=== PATIENT | female | born 1955 | race African-American/Black ===

== ENCOUNTER 2018-08-26 14:43 | Inpatient (IN) | payer MEDICAID ==
[~2018-08-26] VITALS: Ht 167.6 cm; Wt 100.4 kg
[2018-08-26] VITALS (9 sets, daily range): BP systolic 120–144; BP diastolic 87–98
[2018-08-26] MEDS ORDERED: HYDR12.529 PO (14:49)
[2018-08-26] MEDS ORDERED: SODIUM CHLORIDE 0.9% 1,000 ML IV ONE (14:55)
[2018-08-26] MEDS ORDERED: SODIUM CHLORIDE 0.9% 1000ML BAG (SEPSIS BOLUS) IV ONE (15:00)
[2018-08-26 15:26] LABS: BASOPHILS % 0.5 % (0.0-2.0); EOSINOPHILS % 0.1 % (0.0-5.0); HEMATOCRIT. 45.1 % (36.0-48.0); HEMOGLOBIN. 14.4 g/dL (12.0-16.0); LYMPHOCYTES % 16.2 % (20.0-50.0); MEAN CORPUSCULAR HEMOGLOBIN 31.7 pg (28.0-32.0); MEAN CORPUSCULAR VOLUME 99.1 fL (81.0-99.0); MEAN PLATELET VOLUME 10.2 fl (7.4-10.4); MONOCYTES % 7.4 % (2.0-8.0); NEUTROPHILS % 75.8 % (40.0-76.0); PLATELET 218 x1000/uL (130-400); RED BLOOD CELL COUNT 4.55 mill/uL (4.2-5.4); RED CELL DISTRIBUTION WIDTH 18.6 % (11.6-14.6)
[2018-08-26 15:29] LABS: CHLORIDE 103 mEq/L (98-107)
[2018-08-26 15:29] LABS: BG BASE EXCESS 1.2 mmol/L (-2.0-2.0); BG CARBOXYHEMOGLOBIN 3.5 % (0.5-1.5); BG DEOXYHEMOGLOBIN 43.8 % (0.0-5.0); BG METHEMOGLOBIN 0.1 % (0.0-1.5); BG OXYGEN SATURATION 54.6 % (92.0-98.5); BG OXYHEMOGLOBIN 52.6 % (94.0-97.0); BG PCO2 141.5 mmHg (35.0-45.0); BG PH 7.035 (7.350-7.450); BG PO2 38.6 mmHg (75.0-100.0); BG SAMPLE SITE RIGHT BRACHIAL; BG TOTAL HEMOGLOBIN 15.1 g/dL (12.0-18.0); BG VENT MODE NASAL CANNULA
[2018-08-26 15:30] LABS: INR 1.1
[2018-08-26 15:33] LABS: ETHANOL BLOOD < 10 mg/dL
[2018-08-26] MEDS ORDERED: SUCCINYLCHOLINE CHLORIDE 200MG/10ML IV ONE (15:45)
[2018-08-26] MEDS ORDERED: ETOMIDATE 2MG/ML 10ML VIAL IV ONE ×2 (15:45→16:15)
[2018-08-26] MEDS ORDERED: MIDAZOLAM HCL 2 MG/2 ML VIAL IV ONE (16:15)
[2018-08-26] MEDS ORDERED: VANCOMYCIN 1 G PREMIX 200 ML IV SCH (16:15)
[2018-08-26] MEDS ORDERED: MIDAZOLAM HCL 50 MG in DEXTROSE 5% WATER 40 ML IV ONE (16:15)
[2018-08-26] MEDS ORDERED: PIPERACILLIN SODIUM/TAZOBACTAM 4.5 G in DEXT 5% WATER 100 ML IV SCH (16:15)
[2018-08-26] MEDS ORDERED: IPRATROPIUM/ALBUTEROL 0.5-3(2.5)MG/3ML NEB HHN PRN (16:45)
[2018-08-26 16:46] LABS: CLARITY URINE TURBID (CLEAR); COLOR URINE DARK YELLOW (YELLOW); KETONES URINE NEGATIVE (NEGATIVE); LEUKOCYTE ESTERASE URINE NEGATIVE (NEGATIVE); NITRITE URINE NEGATIVE (NEGATIVE); OCCULT BLOOD URINE 1+ (NEGATIVE); PROTEIN URINE 3+ (NEGATIVE); SPECIFIC GRAVITY URINE 1.024 (1.005-1.030)
[2018-08-26] MEDS ORDERED: NOREPINEPHRINE 4MG/250ML PMX 250 ML IV PRN (16:49)
[2018-08-26 16:51] LABS: BG BASE EXCESS -4.2 mmol/L (-2.0-2.0); BG CARBOXYHEMOGLOBIN 3.2 % (0.5-1.5); BG DEOXYHEMOGLOBIN 21.6 % (0.0-5.0); BG HCO3 ACT 28.3 mmol/L (22.0-26.0); BG METHEMOGLOBIN 0.3 % (0.0-1.5); BG OXYGEN SATURATION 77.6 % (92.0-98.5); BG OXYHEMOGLOBIN 74.9 % (94.0-97.0); BG PCO2 97.8 mmHg (35.0-45.0); BG PO2 52.6 mmHg (75.0-100.0); BG SAMPLE SITE RIGHT BRACHIAL; BG TIDAL VOLUME(mL) 500 mL; BG TOTAL HEMOGLOBIN 13.8 g/dL (12.0-18.0); BG VENT MODE VENT - A/C; BG VENT RATE 14 set
[2018-08-26] MEDS ORDERED: NOREPINEPHRINE 4 MG in DEXT 5% WATER 246 ML IV ONE (17:00)
[2018-08-26 17:11] LABS: *AMPHETAMINES SCREEN URINE NEGATIVE (NEGATIVE); *BARBITURATES SCREEN URINE NEGATIVE (NEGATIVE); *BENZODIAZEPINES SCREEN URINE NEGATIVE (NEGATIVE); *COCAINE SCREEN URINE NEGATIVE (NEGATIVE); METHADONE URINE SCREEN NEGATIVE (NEGATIVE); OPIATES URINE SCREEN NEGATIVE (NEGATIVE)
[2018-08-26 17:12] LABS: CANNABINOID URINE SCREEN NEGATIVE (NEGATIVE); PHENCYCLIDINE URINE SCREEN NEGATIVE (NEGATIVE)
[2018-08-26] MEDS ORDERED: GUAIFENESIN 200MG/10ML SUGAR FREE UDC PO PRN (17:45)
[2018-08-26] MEDS ORDERED: ACETAMINOPHEN 650MG/20.3ML UDC PO PRN (17:45)
[2018-08-26] MEDS ORDERED: CLONIDINE 0.1MG TABLET PO PRN (17:45)
[2018-08-26] MEDS ORDERED: ONDANSETRON HCL 4MG/2ML INJ IV PRN (17:45)
[2018-08-26] MEDS ORDERED: DOCUSATE SODIUM 100MG CAPSULE PO PRN (17:45)
[2018-08-26] MEDS ORDERED: HYDROCODONE/ACETAMINOPHEN 10/325MG TABLET PO PRN (17:45)
[2018-08-26] MEDS: MIDAZOLAM HCL 50 MG in DEXTROSE 5% WATER 40 ML IV NR (17:54)
[2018-08-26] MEDS: IPRATROPIUM/ALBUTEROL 0.5-3(2.5)MG/3ML NEB HHN SCH (20:25)
[2018-08-26] MEDS ORDERED: FUROSEMIDE 40MG/4ML VIAL IVP NR (21:53)
[2018-08-26] MEDS ORDERED: FENTANYL CITRATE/PF 500 MCG in SODIUM CHLORIDE 0.9% 40 ML IV PRN ×2 (22:00→22:49)
[2018-08-26] MEDS ORDERED: NOREPINEPHRINE 4 MG in DEXT 5% WATER 246 ML IV PRN (22:00)
[2018-08-26] MEDS ORDERED: HYDROMORPHONE HCL/PF 2MG/ML CPJ IV PRN (22:03)
[2018-08-26] MEDS ORDERED: DEXTROSE 50% WATER 50ML SYRINGE IV PRN (22:05)
[2018-08-26] MEDS: SODIUM CHLORIDE 0.9% INJ 3ML FLUSH IVF SCH (22:48)
[2018-08-26] MEDS: PIPERACILLIN/TAZ 3.375G PREMIX 50 ML IV SCH (22:52)
[2018-08-26] MEDS: DEXT 5%/0.45% NACL 1000ML 1,000 ML IV SCH (22:53)
[2018-08-26] MEDS: PROPOFOL 10MG/ML 100ML 100 ML IV PRN (22:56)
[2018-08-26 23:06] LABS: CREATINE KINASE MB FRACTION 2.2 ng/mL (0.5-3.6)
[2018-08-27] VITALS (72 sets, daily range): BP systolic 93–134; BP diastolic 58–95
[2018-08-27] MEDS: IPRATROPIUM/ALBUTEROL 0.5-3(2.5)MG/3ML NEB HHN SCH ×6 (00:37→20:28)
[2018-08-27 05:01] LABS: BASOPHILS % 0.5 % (0.0-2.0); HEMATOCRIT. 43.4 % (36.0-48.0); HEMOGLOBIN. 13.9 g/dL (12.0-16.0); LYMPHOCYTES % 17.9 % (20.0-50.0); MEAN CORPUSCULAR HEMOGLOBIN 31.1 pg (28.0-32.0); MEAN CORPUSCULAR VOLUME 97.3 fL (81.0-99.0); MEAN PLATELET VOLUME 10.4 fl (7.4-10.4); NEUTROPHILS % 69.6 % (40.0-76.0); PLATELET 181 x1000/uL (130-400); RED BLOOD CELL COUNT 4.46 mill/uL (4.2-5.4); RED CELL DISTRIBUTION WIDTH 18.7 % (11.6-14.6)
[2018-08-27 05:17] LABS: CHLORIDE 108 mEq/L (98-107)
[2018-08-27 05:29] LABS: CREATINE KINASE 103 IU/L (26-192)
[2018-08-27 05:31] LABS: CREATINE KINASE MB FRACTION 1.4 ng/mL (0.5-3.6)
[2018-08-27 05:32] LABS: T4 FREE 0.77 ng/dL (0.76-1.46)
[2018-08-27] MEDS: PROPOFOL 10MG/ML 100ML 100 ML IV PRN ×2 (05:57→09:49)
[2018-08-27] MEDS: INSULIN LISPRO 100 UNITS/ML SUBCUT SCH ×3 (06:00→17:42)
[2018-08-27] MEDS: PIPERACILLIN/TAZ 3.375G PREMIX 50 ML IV SCH ×4 (06:00→23:26)
[2018-08-27] MEDS: BLOOD SUGAR DIAGNOSTIC STRIP TEST SCH ×3 (06:01→17:42)
[2018-08-27] MEDS: SODIUM CHLORIDE 0.9% INJ 3ML FLUSH IVF SCH ×3 (06:01→22:00)
[2018-08-27] MEDS ORDERED: BLOOD SUGAR DIAGNOSTIC STRIP TEST SCH (07:50)
[2018-08-27] MEDS ORDERED: INSULIN LISPRO 100 UNITS/ML SUBCUT SCH (08:20)
[2018-08-27 08:27] LABS: BG BASE EXCESS 5.6 mmol/L (-2.0-2.0); BG CARBOXYHEMOGLOBIN 1.2 % (0.5-1.5); BG DEOXYHEMOGLOBIN 7.5 % (0.0-5.0); BG FRACTION INSPIRED OXYGEN 100; BG HCO3 ACT 27.2 mmol/L (22.0-26.0); BG OXYGEN SATURATION 92.4 % (92.0-98.5); BG OXYHEMOGLOBIN 91.3 % (94.0-97.0); BG PCO2 30.8 mmHg (35.0-45.0); BG PH 7.564 (7.350-7.450); BG PO2 54.4 mmHg (75.0-100.0); BG SAMPLE SITE RIGHT RADIAL; BG TIDAL VOLUME(mL) 550 mL; BG TOTAL HEMOGLOBIN 14.2 g/dL (12.0-18.0); BG VENT MODE VENT - A/C; BG VENT RATE 20 set
[2018-08-27] MEDS ORDERED: ENOXAPARIN 30MG/0.3ML SYR SUBCUT SCH (09:00)
[2018-08-27] MEDS: PANTOPRAZOLE SODIUM 40 MG/VIAL IV SCH (09:47)
[2018-08-27] MEDS: LORAZEPAM 2MG/ML CPJ IV PRN (11:00)
[2018-08-27 11:31] LABS: T4 FREE 0.79 ng/dL (0.76-1.46)
[2018-08-27] MEDS: MIDAZOLAM HCL 50 MG in DEXTROSE 5% WATER 40 ML IV NR (12:27)
[2018-08-27] MEDS ORDERED: ENOXAPARIN 80MG/0.8ML SYR SUBCUT SCH (12:45)
[2018-08-27] MEDS: FENTANYL CITRATE/PF 500 MCG in SODIUM CHLORIDE 0.9% 40 ML IV PRN ×2 (13:05→21:12)
[2018-08-27 15:37] LABS: CREATINE KINASE MB FRACTION 1.1 ng/mL (0.5-3.6)
[2018-08-27] MEDS ORDERED: ENOXAPARIN 100MG/ML SYR SUBCUT SCH (23:00)
[2018-08-27] MEDS: DEXT 5%/0.45% NACL 1000ML 1,000 ML IV SCH (23:27)
[2018-08-27 23:41] LABS: CREATINE KINASE 76 IU/L (26-192)
[2018-08-27 23:42] LABS: CREATINE KINASE MB FRACTION < 1.0 ng/mL (0.5-3.6)
[2018-08-28] VITALS (70 sets, daily range): BP systolic 89–158; BP diastolic 54–95
[2018-08-28] MEDS: IPRATROPIUM/ALBUTEROL 0.5-3(2.5)MG/3ML NEB HHN SCH ×7 (00:16→20:14)
[2018-08-28] MEDS: FENTANYL CITRATE/PF 500 MCG in SODIUM CHLORIDE 0.9% 40 ML IV PRN ×4 (03:51→23:00)
[2018-08-28] MEDS: BLOOD SUGAR DIAGNOSTIC STRIP TEST SCH ×4 (06:24→18:00)
[2018-08-28] MEDS: SODIUM CHLORIDE 0.9% INJ 3ML FLUSH IVF SCH ×3 (06:24→22:21)
[2018-08-28 06:25] LABS: BASOPHILS % 0.4 % (0.0-2.0); EOSINOPHILS % 0.5 % (0.0-5.0); HEMATOCRIT. 40.3 % (36.0-48.0); HEMOGLOBIN. 12.8 g/dL (12.0-16.0); LYMPHOCYTES % 20.2 % (20.0-50.0); MEAN CORPUSCULAR HEMOGLOBIN 30.2 pg (28.0-32.0); MEAN CORPUSCULAR VOLUME 95.2 fL (81.0-99.0); MEAN PLATELET VOLUME 10.4 fl (7.4-10.4); MONOCYTES % 7.6 % (2.0-8.0); NEUTROPHILS % 71.3 % (40.0-76.0); PLATELET 172 x1000/uL (130-400); RED BLOOD CELL COUNT 4.24 mill/uL (4.2-5.4); RED CELL DISTRIBUTION WIDTH 18.4 % (11.6-14.6)
[2018-08-28] MEDS: PIPERACILLIN/TAZ 3.375G PREMIX 50 ML IV SCH ×3 (06:28→19:32)
[2018-08-28 06:39] LABS: CHLORIDE 110 mEq/L (98-107)
[2018-08-28] MEDS: INSULIN LISPRO 100 UNITS/ML SUBCUT SCH ×4 (06:42→18:00)
[2018-08-28 06:58] LABS: CREATINE KINASE 59 IU/L (26-192)
[2018-08-28 07:00] LABS: CREATINE KINASE MB FRACTION < 1.0 ng/mL (0.5-3.6)
[2018-08-28 08:30] LABS: BG CARBOXYHEMOGLOBIN 1.2 % (0.5-1.5); BG DEOXYHEMOGLOBIN 10.9 % (0.0-5.0); BG FRACTION INSPIRED OXYGEN 100; BG HCO3 ACT 28.6 mmol/L (22.0-26.0); BG METHEMOGLOBIN 0.5 % (0.0-1.5); BG OXYGEN SATURATION 88.9 % (92.0-98.5); BG OXYHEMOGLOBIN 87.4 % (94.0-97.0); BG PCO2 42.7 mmHg (35.0-45.0); BG PH 7.444 (7.350-7.450); BG PO2 54.1 mmHg (75.0-100.0); BG SAMPLE SITE RIGHT RADIAL; BG TIDAL VOLUME(mL) 550 mL; BG VENT MODE VENT - A/C; BG VENT RATE 14 set
[2018-08-28] MEDS: PANTOPRAZOLE SODIUM 40 MG/VIAL IV SCH (09:12)
[2018-08-28] MEDS ORDERED: HEPARIN 5000 UNITS/ML VIAL IV SCH (10:30)
[2018-08-28] MEDS ORDERED: SUCCINYLCHOLINE CHLORIDE 200MG/10ML IV ONE (10:30)
[2018-08-28] MEDS ORDERED: HEPARIN 5000 UNITS/ML VIAL IV PRN ×2 (10:30)
[2018-08-28] MEDS ORDERED: ETOMIDATE 2MG/ML 10ML VIAL IV ONE (10:30)
[2018-08-28] MEDS ORDERED: POTASSIUM CHLORIDE 20MEQ/PACKET PO NR (11:30)
[2018-08-28] MEDS ORDERED: ENOXAPARIN 40MG/0.4ML SYR SUBCUT SCH (12:00)
[2018-08-28] MEDS: MIDAZOLAM HCL 50 MG in DEXTROSE 5% WATER 40 ML IV PRN (12:14)
[2018-08-28] MEDS: LORAZEPAM 2MG/ML CPJ IV PRN (12:14)
[2018-08-28 12:20] LABS: BG BASE EXCESS 3.2 mmol/L (-2.0-2.0); BG CARBOXYHEMOGLOBIN 1.1 % (0.5-1.5); BG DEOXYHEMOGLOBIN 5.6 % (0.0-5.0); BG FRACTION INSPIRED OXYGEN 100; BG HCO3 ACT 29.4 mmol/L (22.0-26.0); BG METHEMOGLOBIN 0.3 % (0.0-1.5); BG OXYGEN SATURATION 94.3 % (92.0-98.5); BG PH 7.379 (7.350-7.450); BG PO2 72.7 mmHg (75.0-100.0); BG SAMPLE SITE RIGHT RADIAL; BG TIDAL VOLUME(mL) 550 mL; BG TOTAL HEMOGLOBIN 14.4 g/dL (12.0-18.0); BG VENT MODE VENT - A/C; BG VENT RATE 14 set
[2018-08-28 12:25] LABS: INR 1.1; PARTIAL THROMBOPLASTIN TIME 28.6 sec (23.4-31.0); PROTHROMBIN TIME 11.4 sec (9.1-11.1)
[2018-08-28] MEDS ORDERED: HEPARIN 5000 UNITS/ML VIAL IV NR (13:00)
[2018-08-28] MEDS: HEPARIN 25,000 UNITS PREMIX 500 ML IV PRN (13:19)
[2018-08-29] VITALS (71 sets, daily range): BP systolic 88–131; BP diastolic 49–83
[2018-08-29] MEDS: BLOOD SUGAR DIAGNOSTIC STRIP TEST SCH ×4 (00:07→18:00)
[2018-08-29] MEDS: PIPERACILLIN/TAZ 3.375G PREMIX 50 ML IV SCH ×4 (00:08→19:02)
[2018-08-29] MEDS: DEXT 5%/0.45% NACL 1000ML 1,000 ML IV SCH (00:09)
[2018-08-29] MEDS: IPRATROPIUM/ALBUTEROL 0.5-3(2.5)MG/3ML NEB HHN SCH ×6 (00:21→20:43)
[2018-08-29] MEDS: MIDAZOLAM HCL 50 MG in DEXTROSE 5% WATER 40 ML IV PRN (03:02)
[2018-08-29] MEDS: SODIUM CHLORIDE 0.9% INJ 3ML FLUSH IVF SCH ×3 (05:24→22:00)
[2018-08-29] MEDS: INSULIN LISPRO 100 UNITS/ML SUBCUT SCH ×4 (05:24→18:00)
[2018-08-29 05:53] LABS: CHLORIDE 108 mEq/L (98-107)
[2018-08-29 05:54] LABS: BASOPHILS % 0.7 % (0.0-2.0); EOSINOPHILS % 0.6 % (0.0-5.0); HEMATOCRIT. 37.9 % (36.0-48.0); HEMOGLOBIN. 12.2 g/dL (12.0-16.0); LYMPHOCYTES % 15.4 % (20.0-50.0); MEAN CORPUSCULAR HEMOGLOBIN 30.7 pg (28.0-32.0); MEAN CORPUSCULAR VOLUME 95.2 fL (81.0-99.0); MEAN PLATELET VOLUME 9.9 fl (7.4-10.4); MONOCYTES % 6.8 % (2.0-8.0); NEUTROPHILS % 76.5 % (40.0-76.0); PLATELET 167 x1000/uL (130-400); RED BLOOD CELL COUNT 3.98 mill/uL (4.2-5.4); RED CELL DISTRIBUTION WIDTH 18.3 % (11.6-14.6)
[2018-08-29] MEDS: HEPARIN 25,000 UNITS PREMIX 500 ML IV PRN ×2 (05:55→23:21)
[2018-08-29 07:41] LABS: BG BASE EXCESS 4.6 mmol/L (-2.0-2.0); BG CARBOXYHEMOGLOBIN 0.6 % (0.5-1.5); BG DEOXYHEMOGLOBIN 3.3 % (0.0-5.0); BG FRACTION INSPIRED OXYGEN 100; BG HCO3 ACT 29.3 mmol/L (22.0-26.0); BG METHEMOGLOBIN 0.3 % (0.0-1.5); BG OXYGEN SATURATION 96.7 % (92.0-98.5); BG OXYHEMOGLOBIN 95.8 % (94.0-97.0); BG PCO2 43.6 mmHg (35.0-45.0); BG PH 7.445 (7.350-7.450); BG PO2 91.2 mmHg (75.0-100.0); BG SAMPLE SITE RIGHT RADIAL; BG TIDAL VOLUME(mL) 550 mL; BG TOTAL HEMOGLOBIN 12.8 g/dL (12.0-18.0); BG VENT MODE VENT - A/C; BG VENT RATE 14 set
[2018-08-29] MEDS: FENTANYL CITRATE/PF 500 MCG in SODIUM CHLORIDE 0.9% 40 ML IV PRN ×2 (08:06→23:45)
[2018-08-29] MEDS: PANTOPRAZOLE SODIUM 40 MG/VIAL IV SCH (09:33)
[2018-08-29] MEDS: LORAZEPAM 2MG/ML CPJ IV PRN (09:33)
[2018-08-29] MEDS ORDERED: POTASSIUM CHLORIDE 20MEQ/PACKET PO SCH (12:00)
[2018-08-30] VITALS (49 sets, daily range): BP systolic 92–123; BP diastolic 52–78
[2018-08-30] MEDS: IPRATROPIUM/ALBUTEROL 0.5-3(2.5)MG/3ML NEB HHN SCH ×6 (00:04→20:00)
[2018-08-30] MEDS: MIDAZOLAM HCL 50 MG in DEXTROSE 5% WATER 40 ML IV PRN ×2 (01:42→22:39)
[2018-08-30] MEDS: DEXT 5%/0.45% NACL 1000ML 1,000 ML IV SCH (03:45)
[2018-08-30] MEDS: SODIUM CHLORIDE 3% FOR INH 15ML VIAL NEB INH SCH ×3 (04:10→20:00)
[2018-08-30] MEDS: HEPARIN 5000 UNITS/ML VIAL IV PRN (04:44)
[2018-08-30] MEDS: INSULIN LISPRO 100 UNITS/ML SUBCUT SCH ×4 (06:00→18:00)
[2018-08-30] MEDS: BLOOD SUGAR DIAGNOSTIC STRIP TEST SCH ×4 (06:37→18:43)
[2018-08-30] MEDS: SODIUM CHLORIDE 0.9% INJ 3ML FLUSH IVF SCH ×3 (06:37→22:00)
[2018-08-30] MEDS: PIPERACILLIN/TAZ 3.375G PREMIX 50 ML IV SCH ×4 (06:40→18:43)
[2018-08-30] MEDS: FENTANYL CITRATE/PF 500 MCG in SODIUM CHLORIDE 0.9% 40 ML IV PRN ×3 (06:42→21:36)
[2018-08-30] MEDS: ACETYLCYSTEINE 100MG/ML 10% VIAL 4ML INH SCH ×2 (08:18→16:04)
[2018-08-30] MEDS: PANTOPRAZOLE SODIUM 40 MG/VIAL IV SCH (09:32)
[2018-08-30] MEDS ORDERED: VANCOMYCIN 2,000 MG in DEXT 5% WATER 500 ML IV SCH (10:00)
[2018-08-30 10:02] LABS: BG BASE EXCESS 4.8 mmol/L (-2.0-2.0); BG CARBOXYHEMOGLOBIN 0.2 % (0.5-1.5); BG DEOXYHEMOGLOBIN 5.2 % (0.0-5.0); BG FRACTION INSPIRED OXYGEN 100; BG HCO3 ACT 30.7 mmol/L (22.0-26.0); BG METHEMOGLOBIN 0.3 % (0.0-1.5); BG OXYGEN SATURATION 94.8 % (92.0-98.5); BG OXYHEMOGLOBIN 94.3 % (94.0-97.0); BG PCO2 50.9 mmHg (35.0-45.0); BG PH 7.398 (7.350-7.450); BG PO2 76.5 mmHg (75.0-100.0); BG SAMPLE SITE RIGHT RADIAL; BG TIDAL VOLUME(mL) 500 mL; BG TOTAL HEMOGLOBIN 12.9 g/dL (12.0-18.0); BG VENT MODE VENT - A/C; BG VENT RATE 14 set
[2018-08-30] MEDS ORDERED: FUROSEMIDE 40MG/4ML VIAL IVP NR (10:30)
[2018-08-30 12:29] LABS: BASOPHILS % 0.4 % (0.0-2.0); EOSINOPHILS % 1.6 % (0.0-5.0); HEMATOCRIT. 39.2 % (36.0-48.0); HEMOGLOBIN. 12.7 g/dL (12.0-16.0); LYMPHOCYTES % 9.8 % (20.0-50.0); MEAN CORPUSCULAR VOLUME 95.4 fL (81.0-99.0); MEAN PLATELET VOLUME 9.8 fl (7.4-10.4); MONOCYTES % 6.9 % (2.0-8.0); NEUTROPHILS % 81.3 % (40.0-76.0); PLATELET 154 x1000/uL (130-400); RED BLOOD CELL COUNT 4.11 mill/uL (4.2-5.4); RED CELL DISTRIBUTION WIDTH 17.8 % (11.6-14.6)
[2018-08-30 13:14] LABS: CHLORIDE 105 mEq/L (98-107)
[2018-08-30] MEDS: HEPARIN 25,000 UNITS PREMIX 500 ML IV PRN (16:26)
[2018-08-31] VITALS (74 sets, daily range): BP systolic 78–124; BP diastolic 46–79
[2018-08-31] MEDS: IPRATROPIUM/ALBUTEROL 0.5-3(2.5)MG/3ML NEB HHN SCH ×6 (00:07→19:58)
[2018-08-31] MEDS: ACETYLCYSTEINE 100MG/ML 10% VIAL 4ML INH SCH ×3 (00:07→15:43)
[2018-08-31] MEDS: PIPERACILLIN/TAZ 3.375G PREMIX 50 ML IV SCH ×5 (01:02→23:39)
[2018-08-31] MEDS: SODIUM CHLORIDE 3% FOR INH 15ML VIAL NEB INH SCH ×3 (04:08→08:09)
[2018-08-31] MEDS: FENTANYL CITRATE/PF 500 MCG in SODIUM CHLORIDE 0.9% 40 ML IV PRN ×3 (05:16→18:46)
[2018-08-31] MEDS: BLOOD SUGAR DIAGNOSTIC STRIP TEST SCH ×5 (05:22→23:58)
[2018-08-31] MEDS: INSULIN LISPRO 100 UNITS/ML SUBCUT SCH ×5 (05:35→23:58)
[2018-08-31] MEDS: SODIUM CHLORIDE 0.9% INJ 3ML FLUSH IVF SCH ×3 (05:36→22:00)
[2018-08-31] MEDS ORDERED: VANCOMYCIN 1250MG in DEXTROSE 5% WATER 250ML IV SCH (06:00)
[2018-08-31 06:43] LABS: BASOPHILS % 0.4 % (0.0-2.0); EOSINOPHILS % 1.2 % (0.0-5.0); HEMATOCRIT. 36.9 % (36.0-48.0); LYMPHOCYTES % 10.5 % (20.0-50.0); MEAN CORPUSCULAR HEMOGLOBIN 30.7 pg (28.0-32.0); MEAN CORPUSCULAR VOLUME 94.6 fL (81.0-99.0); MEAN PLATELET VOLUME 10.2 fl (7.4-10.4); MONOCYTES % 7.2 % (2.0-8.0); NEUTROPHILS % 80.7 % (40.0-76.0); PLATELET 162 x1000/uL (130-400); RED CELL DISTRIBUTION WIDTH 18.2 % (11.6-14.6)
[2018-08-31 06:49] LABS: CHLORIDE 101 mEq/L (98-107)
[2018-08-31 07:55] LABS: BG BASE EXCESS 7.8 mmol/L (-2.0-2.0); BG CARBOXYHEMOGLOBIN 0.5 % (0.5-1.5); BG DEOXYHEMOGLOBIN 3.3 % (0.0-5.0); BG HCO3 ACT 32.6 mmol/L (22.0-26.0); BG METHEMOGLOBIN 0.3 % (0.0-1.5); BG OXYGEN SATURATION 96.7 % (92.0-98.5); BG OXYHEMOGLOBIN 95.9 % (94.0-97.0); BG PCO2 46.2 mmHg (35.0-45.0); BG PH 7.466 (7.350-7.450); BG PO2 85.4 mmHg (75.0-100.0); BG SAMPLE SITE RIGHT RADIAL; BG TIDAL VOLUME(mL) 550 mL; BG TOTAL HEMOGLOBIN 12.4 g/dL (12.0-18.0); BG VENT MODE VENT - A/C; BG VENT RATE 14 set
[2018-08-31] MEDS: HEPARIN 5000 UNITS/ML VIAL IV PRN (08:00)
[2018-08-31] MEDS: PANTOPRAZOLE SODIUM 40 MG/VIAL IV SCH (08:00)
[2018-08-31] MEDS: QUETIAPINE FUMARATE 25MG TABLET PO SCH (12:58)
[2018-08-31] MEDS ORDERED: SODIUM CHLORIDE 3% FOR INH 4ML UD NEB INH SCH (14:00)
[2018-08-31] MEDS: CEFAZOLIN 2000MG in DEXTROSE 5% WATER 100ML IV SCH ×2 (14:43→21:06)
[2018-08-31] MEDS: MIDAZOLAM HCL 50 MG in DEXTROSE 5% WATER 40 ML IV PRN (18:01)
[2018-08-31] MEDS: HEPARIN 25,000 UNITS PREMIX 500 ML IV PRN (23:30)
[2018-09-01] VITALS (61 sets, daily range): BP systolic 86–135; BP diastolic 52–99
[2018-09-01] MEDS: IPRATROPIUM/ALBUTEROL 0.5-3(2.5)MG/3ML NEB HHN SCH ×6 (00:18→20:12)
[2018-09-01] MEDS: ACETYLCYSTEINE 100MG/ML 10% VIAL 4ML INH SCH ×3 (00:18→16:00)
[2018-09-01 03:48] LABS: BASOPHILS % 0.4 % (0.0-2.0); EOSINOPHILS % 1.8 % (0.0-5.0); HEMATOCRIT. 35.9 % (36.0-48.0); HEMOGLOBIN. 11.5 g/dL (12.0-16.0); LYMPHOCYTES % 7.1 % (20.0-50.0); MEAN CORPUSCULAR HEMOGLOBIN 30.4 pg (28.0-32.0); MEAN PLATELET VOLUME 10.1 fl (7.4-10.4); MONOCYTES % 7.1 % (2.0-8.0); NEUTROPHILS % 83.6 % (40.0-76.0); PLATELET 160 x1000/uL (130-400); RED BLOOD CELL COUNT 3.78 mill/uL (4.2-5.4); RED CELL DISTRIBUTION WIDTH 17.9 % (11.6-14.6)
[2018-09-01 04:36] LABS: CHLORIDE 102 mEq/L (98-107)
[2018-09-01] MEDS: INSULIN LISPRO 100 UNITS/ML SUBCUT SCH ×3 (06:00→18:00)
[2018-09-01] MEDS: PIPERACILLIN/TAZ 3.375G PREMIX 50 ML IV SCH ×3 (06:54→17:27)
[2018-09-01] MEDS: SODIUM CHLORIDE 0.9% INJ 3ML FLUSH IVF SCH ×3 (06:57→21:17)
[2018-09-01] MEDS: CEFAZOLIN 2000MG in DEXTROSE 5% WATER 100ML IV SCH ×3 (06:57→21:14)
[2018-09-01] MEDS: BLOOD SUGAR DIAGNOSTIC STRIP TEST SCH ×3 (06:58→17:27)
[2018-09-01 08:09] LABS: BG BASE EXCESS 5.2 mmol/L (-2.0-2.0); BG CARBOXYHEMOGLOBIN 0.3 % (0.5-1.5); BG FRACTION INSPIRED OXYGEN 80; BG HCO3 ACT 31.2 mmol/L (22.0-26.0); BG METHEMOGLOBIN 1.1 % (0.0-1.5); BG OXYGEN SATURATION 93.9 % (92.0-98.5); BG OXYHEMOGLOBIN 92.6 % (94.0-97.0); BG PCO2 51.3 mmHg (35.0-45.0); BG PH 7.402 (7.350-7.450); BG PO2 75.4 mmHg (75.0-100.0); BG SAMPLE SITE RIGHT RADIAL; BG TIDAL VOLUME(mL) 550 mL; BG TOTAL HEMOGLOBIN 13.4 g/dL (12.0-18.0); BG VENT MODE VENT - A/C; BG VENT RATE 14 set
[2018-09-01] MEDS: FENTANYL CITRATE/PF 500 MCG in SODIUM CHLORIDE 0.9% 40 ML IV PRN (08:34)
[2018-09-01] MEDS: QUETIAPINE FUMARATE 25MG TABLET PO SCH (09:39)
[2018-09-01] MEDS: PANTOPRAZOLE SODIUM 40 MG/VIAL IV SCH (09:39)
[2018-09-01] MEDS ORDERED: LORAZEPAM 2MG/ML CPJ IV PRN (10:00)
[2018-09-01] MEDS ORDERED: FENTANYL CITRATE/PF 500 MCG in SODIUM CHLORIDE 0.9% 40 ML IV PRN (10:00)
[2018-09-01] MEDS: FENTANYL CITRATE/PF 1,000 MCG in SODIUM CHLORIDE 0.9% 80 ML IV PRN (13:03)
[2018-09-01] MEDS: HEPARIN 5000 UNITS/ML VIAL IV PRN (15:04)
[2018-09-01] MEDS: HEPARIN 25,000 UNITS PREMIX 500 ML IV PRN (17:22)
[2018-09-01] MEDS ORDERED: HYDROMORPHONE HCL/PF 2MG/ML CPJ IV PRN (18:45)
[2018-09-02] VITALS (74 sets, daily range): BP systolic 77–146; BP diastolic 33–102
[2018-09-02] MEDS: ACETYLCYSTEINE 100MG/ML 10% VIAL 4ML INH SCH ×3 (00:28→16:29)
[2018-09-02] MEDS: IPRATROPIUM/ALBUTEROL 0.5-3(2.5)MG/3ML NEB HHN SCH ×6 (00:28→20:36)
[2018-09-02] MEDS: PIPERACILLIN/TAZ 3.375G PREMIX 50 ML IV SCH ×4 (00:40→18:00)
[2018-09-02] MEDS: BLOOD SUGAR DIAGNOSTIC STRIP TEST SCH ×4 (00:40→18:00)
[2018-09-02] MEDS: FENTANYL CITRATE/PF 1,000 MCG in SODIUM CHLORIDE 0.9% 80 ML IV PRN ×2 (03:10→23:07)
[2018-09-02 03:31] LABS: BASOPHILS % 0.3 % (0.0-2.0); EOSINOPHILS % 2.2 % (0.0-5.0); HEMATOCRIT. 36.4 % (36.0-48.0); HEMOGLOBIN. 11.4 g/dL (12.0-16.0); LYMPHOCYTES % 7.2 % (20.0-50.0); MEAN CORPUSCULAR HEMOGLOBIN 30.4 pg (28.0-32.0); MEAN CORPUSCULAR VOLUME 97.4 fL (81.0-99.0); MEAN PLATELET VOLUME 10.9 fl (7.4-10.4); MONOCYTES % 8.6 % (2.0-8.0); NEUTROPHILS % 81.7 % (40.0-76.0); PLATELET 135 x1000/uL (130-400); RED BLOOD CELL COUNT 3.74 mill/uL (4.2-5.4)
[2018-09-02 03:48] LABS: CHLORIDE 103 mEq/L (98-107)
[2018-09-02] MEDS: CEFAZOLIN 2000MG in DEXTROSE 5% WATER 100ML IV SCH ×3 (05:26→23:00)
[2018-09-02] MEDS: INSULIN LISPRO 100 UNITS/ML SUBCUT SCH ×4 (05:28→18:00)
[2018-09-02] MEDS: SODIUM CHLORIDE 0.9% INJ 3ML FLUSH IVF SCH ×3 (05:31→21:33)
[2018-09-02] MEDS: MIDAZOLAM HCL 50 MG in DEXTROSE 5% WATER 40 ML IV PRN (06:39)
[2018-09-02 08:07] LABS: BG CARBOXYHEMOGLOBIN 0.5 % (0.5-1.5); BG DEOXYHEMOGLOBIN 6.8 % (0.0-5.0); BG FRACTION INSPIRED OXYGEN 100; BG HCO3 ACT 32.5 mmol/L (22.0-26.0); BG METHEMOGLOBIN 0.1 % (0.0-1.5); BG OXYGEN SATURATION 93.2 % (92.0-98.5); BG OXYHEMOGLOBIN 92.6 % (94.0-97.0); BG PCO2 49.7 mmHg (35.0-45.0); BG PH 7.433 (7.350-7.450); BG PO2 70.2 mmHg (75.0-100.0); BG SAMPLE SITE RIGHT RADIAL; BG TIDAL VOLUME(mL) 550 mL; BG TOTAL HEMOGLOBIN 12.5 g/dL (12.0-18.0); BG VENT MODE VENT - A/C; BG VENT RATE 14 set
[2018-09-02] MEDS ORDERED: POTASSIUM CHLORIDE INJ 40 MEQ in DEXT 5% WATER 250 ML IV NR (09:00)
[2018-09-02] MEDS: HEPARIN 25,000 UNITS PREMIX 500 ML IV PRN ×2 (09:13→23:13)
[2018-09-02] MEDS: PANTOPRAZOLE SODIUM 40 MG/VIAL IV SCH (09:25)
[2018-09-02] MEDS: QUETIAPINE FUMARATE 25MG TABLET PO SCH (09:25)
[2018-09-02] MEDS: HEPARIN 5000 UNITS/ML VIAL IV PRN (17:52)
[2018-09-03] VITALS (90 sets, daily range): BP systolic 77–142; BP diastolic 39–104
[2018-09-03] MEDS: ACETYLCYSTEINE 100MG/ML 10% VIAL 4ML INH SCH ×3 (00:37→15:10)
[2018-09-03] MEDS: IPRATROPIUM/ALBUTEROL 0.5-3(2.5)MG/3ML NEB HHN SCH ×6 (00:37→20:09)
[2018-09-03] MEDS: PIPERACILLIN/TAZ 3.375G PREMIX 50 ML IV SCH ×4 (00:47→18:56)
[2018-09-03] MEDS: BLOOD SUGAR DIAGNOSTIC STRIP TEST SCH ×4 (00:48→18:29)
[2018-09-03] MEDS: HEPARIN 5000 UNITS/ML VIAL IV PRN ×2 (02:06→11:11)
[2018-09-03] MEDS: SODIUM CHLORIDE 0.9% INJ 3ML FLUSH IVF SCH ×3 (05:50→21:20)
[2018-09-03] MEDS: CEFAZOLIN 2000MG in DEXTROSE 5% WATER 100ML IV SCH ×3 (05:50→21:20)
[2018-09-03] MEDS: INSULIN LISPRO 100 UNITS/ML SUBCUT SCH ×4 (05:53→18:00)
[2018-09-03 06:27] LABS: HEMATOCRIT. 35.3 % (36.0-48.0); HEMOGLOBIN. 11.5 g/dL (12.0-16.0); MEAN CORPUSCULAR HEMOGLOBIN 31.2 pg (28.0-32.0); MEAN CORPUSCULAR VOLUME 95.1 fL (81.0-99.0); MEAN PLATELET VOLUME 10.7 fl (7.4-10.4); PLATELET 189 x1000/uL (130-400); RED CELL DISTRIBUTION WIDTH 17.3 % (11.6-14.6)
[2018-09-03 07:08] LABS: CHLORIDE 101 mEq/L (98-107)
[2018-09-03] MEDS: MIDAZOLAM HCL 50 MG in DEXTROSE 5% WATER 40 ML IV PRN ×2 (07:39→15:11)
[2018-09-03 07:48] LABS: BG BASE EXCESS 3.6 mmol/L (-2.0-2.0); BG CARBOXYHEMOGLOBIN 1.1 % (0.5-1.5); BG DEOXYHEMOGLOBIN 4.1 % (0.0-5.0); BG HCO3 ACT 29.4 mmol/L (22.0-26.0); BG METHEMOGLOBIN 0.5 % (0.0-1.5); BG OXYGEN SATURATION 95.8 % (92.0-98.5); BG OXYHEMOGLOBIN 94.3 % (94.0-97.0); BG PCO2 48.8 mmHg (35.0-45.0); BG PH 7.398 (7.350-7.450); BG PO2 79.6 mmHg (75.0-100.0); BG SAMPLE SITE RIGHT RADIAL; BG TIDAL VOLUME(mL) 550 mL; BG TOTAL HEMOGLOBIN 15.5 g/dL (12.0-18.0); BG VENT MODE VENT - A/C; BG VENT RATE 14 set
[2018-09-03] MEDS ORDERED: FUROSEMIDE 20MG/2ML VIAL IVP SCH (08:15)
[2018-09-03] MEDS: QUETIAPINE FUMARATE 25MG TABLET PO SCH (08:41)
[2018-09-03] MEDS: PANTOPRAZOLE SODIUM 40 MG/VIAL IV SCH (08:41)
[2018-09-03] MEDS ORDERED: LORAZEPAM 2MG/ML CPJ IV PRN (10:00)
[2018-09-03] MEDS ORDERED: KCL 20MEQ/100ML PREMIX 100 ML IV NR (10:00)
[2018-09-03] MEDS: HEPARIN 25,000 UNITS PREMIX 500 ML IV PRN (11:10)
[2018-09-03] MEDS: FENTANYL CITRATE/PF 1,000 MCG in SODIUM CHLORIDE 0.9% 80 ML IV PRN (12:12)
[2018-09-03 13:14] LABS: PLATELET ESTIMATE NORMAL
[2018-09-03] MEDS ORDERED: LIDOCAINE HCL/PF 1% 2ML VIAL ONE (14:30)
[2018-09-03] MEDS ORDERED: IOHEXOL-350 100 ML BOTTLE ONE (14:49)
[2018-09-03] MEDS ORDERED: ENOXAPARIN 40MG/0.4ML SYR SUBCUT SCH (21:00)
[2018-09-04] VITALS (76 sets, daily range): BP systolic 71–121; BP diastolic 21–78
[2018-09-04] MEDS: IPRATROPIUM/ALBUTEROL 0.5-3(2.5)MG/3ML NEB HHN SCH ×8 (00:01→23:58)
[2018-09-04] MEDS: BLOOD SUGAR DIAGNOSTIC STRIP TEST SCH ×4 (00:39→18:09)
[2018-09-04] MEDS: FENTANYL CITRATE/PF 1,000 MCG in SODIUM CHLORIDE 0.9% 80 ML IV PRN ×2 (02:41→21:29)
[2018-09-04] MEDS: SODIUM CHLORIDE 0.9% INJ 3ML FLUSH IVF SCH ×3 (05:15→22:00)
[2018-09-04] MEDS: CEFAZOLIN 2000MG in DEXTROSE 5% WATER 100ML IV SCH ×3 (05:15→21:23)
[2018-09-04] MEDS: INSULIN LISPRO 100 UNITS/ML SUBCUT SCH ×3 (05:21→12:00)
[2018-09-04] MEDS: MIDAZOLAM HCL 50 MG in DEXTROSE 5% WATER 40 ML IV PRN ×2 (06:05→15:12)
[2018-09-04 06:23] LABS: CHLORIDE 99 mEq/L (98-107)
[2018-09-04 06:26] LABS: HEMATOCRIT. 34.9 % (36.0-48.0); HEMOGLOBIN. 11.3 g/dL (12.0-16.0); MEAN CORPUSCULAR HEMOGLOBIN 30.7 pg (28.0-32.0); MEAN CORPUSCULAR VOLUME 94.3 fL (81.0-99.0); MEAN PLATELET VOLUME 10.7 fl (7.4-10.4); PLATELET 216 x1000/uL (130-400); RED CELL DISTRIBUTION WIDTH 17.1 % (11.6-14.6)
[2018-09-04 08:45] LABS: BG BASE EXCESS 5.9 mmol/L (-2.0-2.0); BG CARBOXYHEMOGLOBIN 0.4 % (0.5-1.5); BG DEOXYHEMOGLOBIN 2.9 % (0.0-5.0); BG FRACTION INSPIRED OXYGEN 90; BG HCO3 ACT 32.5 mmol/L (22.0-26.0); BG METHEMOGLOBIN 0.4 % (0.0-1.5); BG OXYGEN SATURATION 97.1 % (92.0-98.5); BG OXYHEMOGLOBIN 96.3 % (94.0-97.0); BG PCO2 56.2 mmHg (35.0-45.0); BG PO2 96.6 mmHg (75.0-100.0); BG SAMPLE SITE RIGHT RADIAL; BG TIDAL VOLUME(mL) 550 mL; BG TOTAL HEMOGLOBIN 12.5 g/dL (12.0-18.0); BG VENT MODE VENT - A/C; BG VENT RATE 14 set
[2018-09-04] MEDS ORDERED: POTASSIUM CHLORIDE INJ 40 MEQ in DEXT 5% WATER 250 ML IV SCH (09:00)
[2018-09-04] MEDS: QUETIAPINE FUMARATE 25MG TABLET PO SCH (09:32)
[2018-09-04] MEDS: PANTOPRAZOLE SODIUM 40 MG/VIAL IV SCH (09:32)
[2018-09-04 10:32] LABS: PLATELET ESTIMATE NORMAL
[2018-09-04] MEDS ORDERED: FUROSEMIDE 20MG/2ML VIAL IVP NR (10:45)
[2018-09-04] MEDS ORDERED: POTASSIUM CHLORIDE 20MEQ/PACKET PO NR (10:45)
[2018-09-05] VITALS (95 sets, daily range): BP systolic 71–141; BP diastolic 42–96
[2018-09-05] MEDS: MIDAZOLAM HCL 50 MG in DEXTROSE 5% WATER 40 ML IV PRN ×3 (03:31→20:47)
[2018-09-05] MEDS: IPRATROPIUM/ALBUTEROL 0.5-3(2.5)MG/3ML NEB HHN SCH ×5 (03:58→20:11)
[2018-09-05 05:11] LABS: CHLORIDE 101 mEq/L (98-107)
[2018-09-05] MEDS: BLOOD SUGAR DIAGNOSTIC STRIP TEST SCH ×4 (06:00→18:18)
[2018-09-05] MEDS: INSULIN LISPRO 100 UNITS/ML SUBCUT SCH ×4 (06:00→18:00)
[2018-09-05] MEDS: SODIUM CHLORIDE 0.9% INJ 3ML FLUSH IVF SCH ×3 (06:19→22:15)
[2018-09-05] MEDS: CEFAZOLIN 2000MG in DEXTROSE 5% WATER 100ML IV SCH ×3 (06:40→22:15)
[2018-09-05] MEDS ORDERED: POTASSIUM CHLORIDE INJ 40 MEQ in DEXT 5% WATER 250 ML IV ONE (08:00)
[2018-09-05] MEDS ORDERED: LACTULOSE 20G/30ML UDC PO NR (10:00)
[2018-09-05] MEDS: ENOXAPARIN 30MG/0.3ML SYR SUBCUT SCH ×2 (10:24→22:14)
[2018-09-05] MEDS: PANTOPRAZOLE SODIUM 40 MG/VIAL IV SCH (10:24)
[2018-09-05] MEDS: QUETIAPINE FUMARATE 25MG TABLET PO SCH (10:25)
[2018-09-05 10:26] LABS: BG BASE EXCESS 8.3 mmol/L (-2.0-2.0); BG CARBOXYHEMOGLOBIN 0.5 % (0.5-1.5); BG DEOXYHEMOGLOBIN 5.5 % (0.0-5.0); BG FRACTION INSPIRED OXYGEN 60; BG HCO3 ACT 35.1 mmol/L (22.0-26.0); BG METHEMOGLOBIN 0.1 % (0.0-1.5); BG OXYGEN SATURATION 94.5 % (92.0-98.5); BG OXYHEMOGLOBIN 93.9 % (94.0-97.0); BG PCO2 59.9 mmHg (35.0-45.0); BG PH 7.386 (7.350-7.450); BG PO2 74.8 mmHg (75.0-100.0); BG SAMPLE SITE LEFT RADIAL; BG TIDAL VOLUME(mL) 550 mL; BG TOTAL HEMOGLOBIN 12.2 g/dL (12.0-18.0); BG VENT MODE VENT - A/C; BG VENT RATE 14 set
[2018-09-05] MEDS: MAGNESIUM/ALUMINUM HYDROXIDE/SIMETHICONE 30ML UDC PO PRN (12:42)
[2018-09-05] MEDS: DOCUSATE SODIUM SUGAR FREE 100MG/10ML UDC NG SCH (12:43)
[2018-09-05] MEDS: FENTANYL CITRATE/PF 1,000 MCG in SODIUM CHLORIDE 0.9% 80 ML IV PRN (16:30)
[2018-09-05] MEDS: LACTULOSE 20G/30ML UDC PO PRN (22:13)
[2018-09-06] VITALS (50 sets, daily range): BP systolic 87–144; BP diastolic 46–112
[2018-09-06] MEDS: IPRATROPIUM/ALBUTEROL 0.5-3(2.5)MG/3ML NEB HHN SCH ×6 (00:12→19:53)
[2018-09-06 05:59] LABS: CHLORIDE 100 mEq/L (98-107)
[2018-09-06] MEDS: INSULIN LISPRO 100 UNITS/ML SUBCUT SCH ×4 (06:00→18:00)
[2018-09-06] MEDS: SODIUM CHLORIDE 0.9% INJ 3ML FLUSH IVF SCH ×3 (06:24→21:25)
[2018-09-06] MEDS: CEFAZOLIN 2000MG in DEXTROSE 5% WATER 100ML IV SCH ×3 (06:25→21:24)
[2018-09-06] MEDS: BLOOD SUGAR DIAGNOSTIC STRIP TEST SCH ×4 (06:25→18:00)
[2018-09-06] MEDS: DOCUSATE SODIUM SUGAR FREE 100MG/10ML UDC NG SCH (08:15)
[2018-09-06] MEDS: ENOXAPARIN 30MG/0.3ML SYR SUBCUT SCH ×2 (08:15→21:25)
[2018-09-06] MEDS: PANTOPRAZOLE SODIUM 40 MG/VIAL IV SCH (08:15)
[2018-09-06] MEDS: QUETIAPINE FUMARATE 25MG TABLET PO SCH (08:15)
[2018-09-06] MEDS: FENTANYL CITRATE/PF 1,000 MCG in SODIUM CHLORIDE 0.9% 80 ML IV PRN ×2 (08:16→21:13)
[2018-09-06 08:23] LABS: BG BASE EXCESS 9.5 mmol/L (-2.0-2.0); BG CARBOXYHEMOGLOBIN 0.5 % (0.5-1.5); BG DEOXYHEMOGLOBIN 5.5 % (0.0-5.0); BG FRACTION INSPIRED OXYGEN 60; BG HCO3 ACT 36.3 mmol/L (22.0-26.0); BG METHEMOGLOBIN 0.2 % (0.0-1.5); BG OXYGEN SATURATION 94.5 % (92.0-98.5); BG OXYHEMOGLOBIN 93.8 % (94.0-97.0); BG PCO2 60.3 mmHg (35.0-45.0); BG PH 7.397 (7.350-7.450); BG PO2 73.1 mmHg (75.0-100.0); BG SAMPLE SITE LEFT BRACHIAL; BG TIDAL VOLUME(mL) 550 mL; BG TOTAL HEMOGLOBIN 12.1 g/dL (12.0-18.0); BG VENT MODE VENT - A/C; BG VENT RATE 14 set
[2018-09-06 10:06] LABS: BASOPHILS % 0.2 % (0.0-2.0); EOSINOPHILS % 3.2 % (0.0-5.0); HEMATOCRIT. 35.4 % (36.0-48.0); HEMOGLOBIN. 11.2 g/dL (12.0-16.0); LYMPHOCYTES % 14.1 % (20.0-50.0); MEAN CORPUSCULAR HEMOGLOBIN 30.4 pg (28.0-32.0); MEAN CORPUSCULAR VOLUME 95.8 fL (81.0-99.0); MEAN PLATELET VOLUME 10.1 fl (7.4-10.4); MONOCYTES % 5.3 % (2.0-8.0); NEUTROPHILS % 77.2 % (40.0-76.0); PLATELET 273 x1000/uL (130-400); RED BLOOD CELL COUNT 3.69 mill/uL (4.2-5.4); RED CELL DISTRIBUTION WIDTH 16.6 % (11.6-14.6)
[2018-09-06] MEDS: FUROSEMIDE 40MG/4ML VIAL IVP SCH (10:57)
[2018-09-06] MEDS: MIDAZOLAM HCL 50 MG in DEXTROSE 5% WATER 40 ML IV PRN (14:49)
[2018-09-07] VITALS (48 sets, daily range): BP systolic 82–147; BP diastolic 33–80
[2018-09-07] MEDS: IPRATROPIUM/ALBUTEROL 0.5-3(2.5)MG/3ML NEB HHN SCH ×7 (00:10→23:57)
[2018-09-07] MEDS: MIDAZOLAM HCL 50 MG in DEXTROSE 5% WATER 40 ML IV PRN ×2 (01:12→18:47)
[2018-09-07] MEDS: BLOOD SUGAR DIAGNOSTIC STRIP TEST SCH ×4 (05:28→17:42)
[2018-09-07] MEDS: INSULIN LISPRO 100 UNITS/ML SUBCUT SCH ×4 (05:28→17:42)
[2018-09-07] MEDS: SODIUM CHLORIDE 0.9% INJ 3ML FLUSH IVF SCH ×3 (05:28→21:45)
[2018-09-07] MEDS: CEFAZOLIN 2000MG in DEXTROSE 5% WATER 100ML IV SCH ×3 (05:29→21:44)
[2018-09-07 05:50] LABS: BASOPHILS % 0.6 % (0.0-2.0); EOSINOPHILS % 4.3 % (0.0-5.0); HEMATOCRIT. 34.7 % (36.0-48.0); HEMOGLOBIN. 11.1 g/dL (12.0-16.0); LYMPHOCYTES % 18.4 % (20.0-50.0); MEAN CORPUSCULAR HEMOGLOBIN 30.8 pg (28.0-32.0); MEAN PLATELET VOLUME 10.3 fl (7.4-10.4); MONOCYTES % 6.7 % (2.0-8.0); PLATELET 281 x1000/uL (130-400); RED BLOOD CELL COUNT 3.61 mill/uL (4.2-5.4); RED CELL DISTRIBUTION WIDTH 16.7 % (11.6-14.6)
[2018-09-07 06:08] LABS: CHLORIDE 99 mEq/L (98-107)
[2018-09-07] MEDS: ENOXAPARIN 30MG/0.3ML SYR SUBCUT SCH ×2 (08:13→21:45)
[2018-09-07] MEDS: PANTOPRAZOLE SODIUM 40 MG/VIAL IV SCH (08:13)
[2018-09-07] MEDS: DOCUSATE SODIUM SUGAR FREE 100MG/10ML UDC NG SCH (08:13)
[2018-09-07] MEDS: QUETIAPINE FUMARATE 25MG TABLET PO SCH (08:14)
[2018-09-07 08:36] LABS: BG BASE EXCESS 10.9 mmol/L (-2.0-2.0); BG CARBOXYHEMOGLOBIN 0.5 % (0.5-1.5); BG DEOXYHEMOGLOBIN 11.2 % (0.0-5.0); BG FRACTION INSPIRED OXYGEN 55; BG HCO3 ACT 37.4 mmol/L (22.0-26.0); BG METHEMOGLOBIN 0.3 % (0.0-1.5); BG OXYGEN SATURATION 88.7 % (92.0-98.5); BG PCO2 59.6 mmHg (35.0-45.0); BG PH 7.416 (7.350-7.450); BG PO2 55.5 mmHg (75.0-100.0); BG SAMPLE SITE RIGHT RADIAL; BG TIDAL VOLUME(mL) 550 mL; BG TOTAL HEMOGLOBIN 11.7 g/dL (12.0-18.0); BG VENT MODE VENT - A/C; BG VENT RATE 14 set
[2018-09-07] MEDS: FUROSEMIDE 40MG/4ML VIAL IVP SCH (09:57)
[2018-09-07] MEDS ORDERED: KCL 20MEQ/100ML PREMIX 100 ML IV SCH (11:30)
[2018-09-07 11:32] LABS: BG BASE EXCESS 11.2 mmol/L (-2.0-2.0); BG CARBOXYHEMOGLOBIN 0.7 % (0.5-1.5); BG DEOXYHEMOGLOBIN 10.4 % (0.0-5.0); BG FRACTION INSPIRED OXYGEN 65; BG HCO3 ACT 37.3 mmol/L (22.0-26.0); BG METHEMOGLOBIN 0.3 % (0.0-1.5); BG OXYGEN SATURATION 89.5 % (92.0-98.5); BG OXYHEMOGLOBIN 88.6 % (94.0-97.0); BG PCO2 55.9 mmHg (35.0-45.0); BG PH 7.442 (7.350-7.450); BG SAMPLE SITE RIGHT RADIAL; BG TIDAL VOLUME(mL) 550 mL; BG TOTAL HEMOGLOBIN 12.2 g/dL (12.0-18.0); BG VENT MODE VENT - A/C; BG VENT RATE 14 set
[2018-09-07] MEDS: FENTANYL CITRATE/PF 1,000 MCG in SODIUM CHLORIDE 0.9% 80 ML IV PRN (11:55)
[2018-09-08] VITALS (35 sets, daily range): BP systolic 93–139; BP diastolic 48–89
[2018-09-08] MEDS: BLOOD SUGAR DIAGNOSTIC STRIP TEST SCH ×3 (00:48→12:00)
[2018-09-08] MEDS: FENTANYL CITRATE/PF 1,000 MCG in SODIUM CHLORIDE 0.9% 80 ML IV PRN (00:50)
[2018-09-08] MEDS: MIDAZOLAM HCL 50 MG in DEXTROSE 5% WATER 40 ML IV PRN ×2 (02:38→13:21)
[2018-09-08] MEDS: IPRATROPIUM/ALBUTEROL 0.5-3(2.5)MG/3ML NEB HHN SCH ×5 (04:12→20:14)
[2018-09-08] MEDS: SODIUM CHLORIDE 0.9% INJ 3ML FLUSH IVF SCH ×3 (05:34→21:42)
[2018-09-08] MEDS: INSULIN LISPRO 100 UNITS/ML SUBCUT SCH ×3 (05:34→12:00)
[2018-09-08 08:54] LABS: BASOPHILS % 1.2 % (0.0-2.0); EOSINOPHILS % 3.8 % (0.0-5.0); HEMATOCRIT. 35.1 % (36.0-48.0); HEMOGLOBIN. 11.2 g/dL (12.0-16.0); LYMPHOCYTES % 26.2 % (20.0-50.0); MEAN CORPUSCULAR HEMOGLOBIN 30.3 pg (28.0-32.0); MEAN CORPUSCULAR VOLUME 95.1 fL (81.0-99.0); MEAN PLATELET VOLUME 9.7 fl (7.4-10.4); MONOCYTES % 7.9 % (2.0-8.0); NEUTROPHILS % 60.9 % (40.0-76.0); PLATELET 323 x1000/uL (130-400); RED BLOOD CELL COUNT 3.69 mill/uL (4.2-5.4); RED CELL DISTRIBUTION WIDTH 16.8 % (11.6-14.6)
[2018-09-08 08:57] LABS: CHLORIDE 99 mEq/L (98-107)
[2018-09-08] MEDS: DOCUSATE SODIUM SUGAR FREE 100MG/10ML UDC NG SCH (09:00)
[2018-09-08 09:02] LABS: BG CARBOXYHEMOGLOBIN 0.1 % (0.5-1.5); BG DEOXYHEMOGLOBIN 7.1 % (0.0-5.0); BG HCO3 ACT 40.3 mmol/L (22.0-26.0); BG METHEMOGLOBIN 0.6 % (0.0-1.5); BG OXYGEN SATURATION 92.8 % (92.0-98.5); BG OXYHEMOGLOBIN 92.2 % (94.0-97.0); BG PCO2 58.3 mmHg (35.0-45.0); BG PH 7.458 (7.350-7.450); BG SAMPLE SITE RIGHT RADIAL; BG TOTAL HEMOGLOBIN 12.5 g/dL (12.0-18.0); BG VENT MODE VENT - A/C; BG VENT RATE 14 set
[2018-09-08 09:04] LABS: PHOSPHORUS 3.1 mg/dL (2.5-4.9)
[2018-09-08 09:07] LABS: BG FRACTION INSPIRED OXYGEN 70; BG TIDAL VOLUME(mL) 550 mL
[2018-09-08] MEDS: PANTOPRAZOLE SODIUM 40 MG/VIAL IV SCH ×2 (10:10→10:14)
[2018-09-08] MEDS: QUETIAPINE FUMARATE 25MG TABLET PO SCH (10:10)
[2018-09-08] MEDS: FUROSEMIDE 40MG/4ML VIAL IVP SCH (10:10)
[2018-09-08] MEDS: ENOXAPARIN 30MG/0.3ML SYR SUBCUT SCH ×2 (10:11→21:42)
[2018-09-08 14:00] LABS: BG BASE EXCESS 12.6 mmol/L (-2.0-2.0); BG CARBOXYHEMOGLOBIN 0.2 % (0.5-1.5); BG DEOXYHEMOGLOBIN 9.2 % (0.0-5.0); BG FRACTION INSPIRED OXYGEN 70; BG HCO3 ACT 38.4 mmol/L (22.0-26.0); BG OXYGEN SATURATION 90.8 % (92.0-98.5); BG OXYHEMOGLOBIN 90.6 % (94.0-97.0); BG PCO2 54.6 mmHg (35.0-45.0); BG PH 7.465 (7.350-7.450); BG PO2 59.6 mmHg (75.0-100.0); BG SAMPLE SITE RIGHT RADIAL; BG TIDAL VOLUME(mL) 550 mL; BG TOTAL HEMOGLOBIN 12.5 g/dL (12.0-18.0); BG VENT MODE VENT - A/C; BG VENT RATE 14 set
[2018-09-09] VITALS (34 sets, daily range): BP systolic 64–126; BP diastolic 23–75
[2018-09-09] MEDS: IPRATROPIUM/ALBUTEROL 0.5-3(2.5)MG/3ML NEB HHN SCH ×6 (00:13→20:05)
[2018-09-09] MEDS: BLOOD SUGAR DIAGNOSTIC STRIP TEST SCH ×4 (00:37→18:00)
[2018-09-09] MEDS: FENTANYL CITRATE/PF 1,000 MCG in SODIUM CHLORIDE 0.9% 80 ML IV PRN ×2 (00:46→15:55)
[2018-09-09] MEDS: MIDAZOLAM HCL 50 MG in DEXTROSE 5% WATER 40 ML IV PRN ×2 (02:26→18:03)
[2018-09-09] MEDS: SODIUM CHLORIDE 0.9% INJ 3ML FLUSH IVF SCH ×3 (05:24→22:25)
[2018-09-09] MEDS: INSULIN LISPRO 100 UNITS/ML SUBCUT SCH ×4 (05:24→18:00)
[2018-09-09 08:07] LABS: BG BASE EXCESS 13.4 mmol/L (-2.0-2.0); BG CARBOXYHEMOGLOBIN 0.2 % (0.5-1.5); BG FRACTION INSPIRED OXYGEN 80; BG HCO3 ACT 39.2 mmol/L (22.0-26.0); BG METHEMOGLOBIN 0.2 % (0.0-1.5); BG OXYHEMOGLOBIN 94.6 % (94.0-97.0); BG PCO2 54.9 mmHg (35.0-45.0); BG PH 7.472 (7.350-7.450); BG PO2 75.5 mmHg (75.0-100.0); BG SAMPLE SITE LEFT BRACHIAL; BG TIDAL VOLUME(mL) 550 mL; BG TOTAL HEMOGLOBIN 12.7 g/dL (12.0-18.0); BG VENT MODE VENT - A/C; BG VENT RATE 14 set
[2018-09-09] MEDS ORDERED: ACETAZOLAMIDE SODIUM 500MG/VIAL IV SCH (10:00)
[2018-09-09] MEDS: PANTOPRAZOLE SODIUM 40 MG/VIAL IV SCH (10:07)
[2018-09-09] MEDS: DOCUSATE SODIUM SUGAR FREE 100MG/10ML UDC NG SCH (10:07)
[2018-09-09] MEDS: ENOXAPARIN 30MG/0.3ML SYR SUBCUT SCH ×2 (10:10→22:25)
[2018-09-09] MEDS: QUETIAPINE FUMARATE 25MG TABLET PO SCH (10:11)
[2018-09-09] MEDS: FUROSEMIDE 40MG/4ML VIAL IVP SCH (10:11)
[2018-09-09] MEDS: ACETYLCYSTEINE 100MG/ML 10% VIAL 4ML INH SCH (12:15)
[2018-09-09] MEDS ORDERED: NOREPINEPHRINE 4 MG in DEXT 5% WATER 246 ML IV PRN (22:45)
[2018-09-10] VITALS (34 sets, daily range): BP systolic 94–184; BP diastolic 37–105
[2018-09-10] MEDS: IPRATROPIUM/ALBUTEROL 0.5-3(2.5)MG/3ML NEB HHN SCH ×6 (00:12→20:35)
[2018-09-10] MEDS: ACETYLCYSTEINE 100MG/ML 10% VIAL 4ML INH SCH ×2 (00:14→12:01)
[2018-09-10] MEDS: MIDAZOLAM HCL 50 MG in DEXTROSE 5% WATER 40 ML IV PRN (04:54)
[2018-09-10] MEDS: INSULIN LISPRO 100 UNITS/ML SUBCUT SCH ×4 (06:00→18:00)
[2018-09-10] MEDS: SODIUM CHLORIDE 0.9% INJ 3ML FLUSH IVF SCH ×3 (06:00→20:34)
[2018-09-10] MEDS: BLOOD SUGAR DIAGNOSTIC STRIP TEST SCH ×4 (06:00→18:00)
[2018-09-10 08:55] LABS: BG BASE EXCESS 7.6 mmol/L (-2.0-2.0); BG CARBOXYHEMOGLOBIN 0.5 % (0.5-1.5); BG DEOXYHEMOGLOBIN 7.8 % (0.0-5.0); BG FRACTION INSPIRED OXYGEN 70; BG HCO3 ACT 33.1 mmol/L (22.0-26.0); BG METHEMOGLOBIN 0.2 % (0.0-1.5); BG OXYGEN SATURATION 92.1 % (92.0-98.5); BG OXYHEMOGLOBIN 91.5 % (94.0-97.0); BG PCO2 50.3 mmHg (35.0-45.0); BG PH 7.436 (7.350-7.450); BG PO2 65.1 mmHg (75.0-100.0); BG SAMPLE SITE LEFT BRACHIAL; BG TIDAL VOLUME(mL) 550 mL; BG VENT MODE VENT - A/C; BG VENT RATE 14 set
[2018-09-10] MEDS: FUROSEMIDE 40MG/4ML VIAL IVP SCH (09:53)
[2018-09-10] MEDS: ENOXAPARIN 30MG/0.3ML SYR SUBCUT SCH (09:53)
[2018-09-10] MEDS: PANTOPRAZOLE SODIUM 40 MG/VIAL IV SCH (09:53)
[2018-09-10] MEDS: DOCUSATE SODIUM SUGAR FREE 100MG/10ML UDC NG SCH (09:54)
[2018-09-10] MEDS: QUETIAPINE FUMARATE 25MG TABLET PO SCH (09:54)
[2018-09-10 12:10] LABS: BASOPHILS % 0.9 % (0.0-2.0); EOSINOPHILS % 3.5 % (0.0-5.0); HEMATOCRIT. 36.7 % (36.0-48.0); HEMOGLOBIN. 11.7 g/dL (12.0-16.0); LYMPHOCYTES % 21.9 % (20.0-50.0); MEAN CORPUSCULAR HEMOGLOBIN 30.1 pg (28.0-32.0); MEAN CORPUSCULAR VOLUME 94.2 fL (81.0-99.0); MEAN PLATELET VOLUME 9.2 fl (7.4-10.4); MONOCYTES % 6.8 % (2.0-8.0); NEUTROPHILS % 66.9 % (40.0-76.0); PLATELET 374 x1000/uL (130-400); RED CELL DISTRIBUTION WIDTH 16.8 % (11.6-14.6)
[2018-09-10 12:16] LABS: CHLORIDE 100 mEq/L (98-107)
[2018-09-10 12:18] LABS: INR 1.1; PARTIAL THROMBOPLASTIN TIME 30.6 sec (23.4-31.0)
[2018-09-10 12:23] LABS: PHOSPHORUS 3.7 mg/dL (2.5-4.9)
[2018-09-10 13:56] LABS: BG BASE EXCESS 6.3 mmol/L (-2.0-2.0); BG CARBOXYHEMOGLOBIN 0.5 % (0.5-1.5); BG DEOXYHEMOGLOBIN 12.7 % (0.0-5.0); BG FRACTION INSPIRED OXYGEN 40; BG HCO3 ACT 30.6 mmol/L (22.0-26.0); BG METHEMOGLOBIN 0.1 % (0.0-1.5); BG OXYGEN SATURATION 87.2 % (92.0-98.5); BG OXYHEMOGLOBIN 86.7 % (94.0-97.0); BG PCO2 42.6 mmHg (35.0-45.0); BG PH 7.474 (7.350-7.450); BG PO2 52.5 mmHg (75.0-100.0); BG SAMPLE SITE RIGHT RADIAL; BG TIDAL VOLUME(mL) 550 mL; BG TOTAL HEMOGLOBIN 12.6 g/dL (12.0-18.0); BG VENT MODE VENT - A/C; BG VENT RATE 14 set
[2018-09-10] MEDS ORDERED: MIDAZOLAM HCL 5 MG/5 ML VIAL ONE (19:25)
[2018-09-10] MEDS ORDERED: ROCURONIUM BROMIDE 10MG/ML VIAL 5ML IV ONE (19:25)
[2018-09-10] MEDS: MORPHINE SULFATE 4 MG/ML CPJ (NOT FOR IM USE) IV PRN (21:28)
[2018-09-11] VITALS (53 sets, daily range): BP systolic 88–149; BP diastolic 28–109
[2018-09-11] MEDS: ACETYLCYSTEINE 100MG/ML 10% VIAL 4ML INH SCH ×3 (00:32→15:08)
[2018-09-11] MEDS: IPRATROPIUM/ALBUTEROL 0.5-3(2.5)MG/3ML NEB HHN SCH ×6 (00:32→22:02)
[2018-09-11] MEDS: MORPHINE SULFATE 4 MG/ML CPJ (NOT FOR IM USE) IV PRN (02:55)
[2018-09-11] MEDS: LORAZEPAM 2MG/ML CPJ IV PRN ×2 (04:30→17:03)
[2018-09-11] MEDS: SODIUM CHLORIDE 0.9% INJ 3ML FLUSH IVF SCH ×3 (05:39→22:32)
[2018-09-11] MEDS: INSULIN LISPRO 100 UNITS/ML SUBCUT SCH ×5 (06:00→23:12)
[2018-09-11] MEDS: BLOOD SUGAR DIAGNOSTIC STRIP TEST SCH ×5 (06:00→23:12)
[2018-09-11 07:56] LABS: BASOPHILS % 0.9 % (0.0-2.0); EOSINOPHILS % 0.8 % (0.0-5.0); HEMATOCRIT. 40.2 % (36.0-48.0); HEMOGLOBIN. 12.8 g/dL (12.0-16.0); LYMPHOCYTES % 16.2 % (20.0-50.0); MEAN CORPUSCULAR HEMOGLOBIN 30.3 pg (28.0-32.0); MEAN CORPUSCULAR VOLUME 94.9 fL (81.0-99.0); MEAN PLATELET VOLUME 8.9 fl (7.4-10.4); MONOCYTES % 7.8 % (2.0-8.0); NEUTROPHILS % 74.3 % (40.0-76.0); PLATELET 379 x1000/uL (130-400); RED BLOOD CELL COUNT 4.23 mill/uL (4.2-5.4); RED CELL DISTRIBUTION WIDTH 16.5 % (11.6-14.6)
[2018-09-11 08:00] LABS: CHLORIDE 101 mEq/L (98-107)
[2018-09-11 09:03] LABS: BG BASE EXCESS 6.9 mmol/L (-2.0-2.0); BG CARBOXYHEMOGLOBIN 0.6 % (0.5-1.5); BG FRACTION INSPIRED OXYGEN 50; BG HCO3 ACT 31.1 mmol/L (22.0-26.0); BG METHEMOGLOBIN 0.2 % (0.0-1.5); BG OXYGEN SATURATION 88.9 % (92.0-98.5); BG OXYHEMOGLOBIN 88.2 % (94.0-97.0); BG PCO2 42.3 mmHg (35.0-45.0); BG PH 7.484 (7.350-7.450); BG PO2 55.1 mmHg (75.0-100.0); BG SAMPLE SITE RIGHT RADIAL; BG TIDAL VOLUME(mL) 550 mL; BG TOTAL HEMOGLOBIN 13.3 g/dL (12.0-18.0); BG VENT MODE VENT - A/C; BG VENT RATE 14 set
[2018-09-11] MEDS: FUROSEMIDE 40MG/4ML VIAL IVP SCH (09:33)
[2018-09-11] MEDS: QUETIAPINE FUMARATE 25MG TABLET PO SCH (09:37)
[2018-09-11] MEDS: DOCUSATE SODIUM SUGAR FREE 100MG/10ML UDC NG SCH (09:37)
[2018-09-11] MEDS: METOCLOPRAMIDE HCL 10MG/2ML VIAL IV SCH ×2 (19:01→23:10)
[2018-09-12] VITALS (31 sets, daily range): BP systolic 75–123; BP diastolic 29–90
[2018-09-12] MEDS: LACTULOSE 20G/30ML UDC PO PRN ×4 (01:12→21:53)
[2018-09-12] MEDS: ACETYLCYSTEINE 100MG/ML 10% VIAL 4ML INH SCH ×4 (01:26→15:15)
[2018-09-12] MEDS: IPRATROPIUM/ALBUTEROL 0.5-3(2.5)MG/3ML NEB HHN SCH ×6 (01:26→21:54)
[2018-09-12] MEDS: BLOOD SUGAR DIAGNOSTIC STRIP TEST SCH ×4 (05:18→23:52)
[2018-09-12] MEDS: METOCLOPRAMIDE HCL 10MG/2ML VIAL IV SCH ×4 (05:18→23:51)
[2018-09-12] MEDS: INSULIN LISPRO 100 UNITS/ML SUBCUT SCH ×4 (05:18→23:52)
[2018-09-12] MEDS: SODIUM CHLORIDE 0.9% INJ 3ML FLUSH IVF SCH ×3 (05:18→22:00)
[2018-09-12 07:12] LABS: EOSINOPHILS % 0.9 % (0.0-5.0); HEMATOCRIT. 38.7 % (36.0-48.0); HEMOGLOBIN. 12.4 g/dL (12.0-16.0); LYMPHOCYTES % 14.8 % (20.0-50.0); MEAN CORPUSCULAR HEMOGLOBIN 30.2 pg (28.0-32.0); MEAN CORPUSCULAR VOLUME 94.1 fL (81.0-99.0); MEAN PLATELET VOLUME 9.1 fl (7.4-10.4); MONOCYTES % 7.2 % (2.0-8.0); NEUTROPHILS % 76.1 % (40.0-76.0); PLATELET 386 x1000/uL (130-400); RED BLOOD CELL COUNT 4.11 mill/uL (4.2-5.4); RED CELL DISTRIBUTION WIDTH 16.5 % (11.6-14.6)
[2018-09-12 07:17] LABS: CHLORIDE 101 mEq/L (98-107)
[2018-09-12 07:52] LABS: BG BASE EXCESS 6.2 mmol/L (-2.0-2.0); BG CARBOXYHEMOGLOBIN 0.6 % (0.5-1.5); BG DEOXYHEMOGLOBIN 7.4 % (0.0-5.0); BG FRACTION INSPIRED OXYGEN 75; BG HCO3 ACT 31.1 mmol/L (22.0-26.0); BG METHEMOGLOBIN 0.2 % (0.0-1.5); BG OXYGEN SATURATION 92.5 % (92.0-98.5); BG OXYHEMOGLOBIN 91.8 % (94.0-97.0); BG PCO2 45.5 mmHg (35.0-45.0); BG PH 7.452 (7.350-7.450); BG PO2 64.8 mmHg (75.0-100.0); BG SAMPLE SITE RIGHT BRACHIAL; BG TIDAL VOLUME(mL) 550 mL; BG TOTAL HEMOGLOBIN 13.6 g/dL (12.0-18.0); BG VENT MODE VENT - A/C; BG VENT RATE 14 set
[2018-09-12] MEDS: QUETIAPINE FUMARATE 25MG TABLET PO SCH (08:49)
[2018-09-12] MEDS: PANTOPRAZOLE SODIUM 40 MG/VIAL IV SCH ×2 (08:49→21:53)
[2018-09-12] MEDS: DOCUSATE SODIUM SUGAR FREE 100MG/10ML UDC NG SCH (08:51)
[2018-09-12] MEDS: FUROSEMIDE 40MG/4ML VIAL IVP SCH (08:51)
[2018-09-12] MEDS ORDERED: BISACODYL 10MG SUPP PR PRN (11:45)
[2018-09-12] MEDS ORDERED: BISACODYL 10MG SUPP PR SCH (11:45)
[2018-09-13] VITALS (12 sets, daily range): BP systolic 88–115; BP diastolic 45–76
[2018-09-13] MEDS: IPRATROPIUM/ALBUTEROL 0.5-3(2.5)MG/3ML NEB HHN SCH ×6 (02:09→22:24)
[2018-09-13] MEDS: INSULIN LISPRO 100 UNITS/ML SUBCUT SCH ×3 (05:07→17:17)
[2018-09-13] MEDS: BLOOD SUGAR DIAGNOSTIC STRIP TEST SCH ×3 (05:08→17:17)
[2018-09-13] MEDS: METOCLOPRAMIDE HCL 10MG/2ML VIAL IV SCH ×3 (05:57→17:17)
[2018-09-13] MEDS: SODIUM CHLORIDE 0.9% INJ 3ML FLUSH IVF SCH ×3 (05:57→21:34)
[2018-09-13] MEDS: FUROSEMIDE 40MG/4ML VIAL IVP SCH (08:47)
[2018-09-13] MEDS: DOCUSATE SODIUM SUGAR FREE 100MG/10ML UDC NG SCH (08:47)
[2018-09-13] MEDS: PANTOPRAZOLE SODIUM 40 MG/VIAL IV SCH ×2 (08:47→21:20)
[2018-09-13] MEDS: QUETIAPINE FUMARATE 25MG TABLET PO SCH (08:48)
[2018-09-13 10:33] LABS: BG BASE EXCESS 3.2 mmol/L (-2.0-2.0); BG CARBOXYHEMOGLOBIN 0.5 % (0.5-1.5); BG DEOXYHEMOGLOBIN 3.6 % (0.0-5.0); BG FRACTION INSPIRED OXYGEN 80; BG HCO3 ACT 27.5 mmol/L (22.0-26.0); BG METHEMOGLOBIN 0.2 % (0.0-1.5); BG OXYGEN SATURATION 96.4 % (92.0-98.5); BG OXYHEMOGLOBIN 95.7 % (94.0-97.0); BG PCO2 40.8 mmHg (35.0-45.0); BG PH 7.446 (7.350-7.450); BG PO2 86.2 mmHg (75.0-100.0); BG SAMPLE SITE RIGHT BRACHIAL; BG TIDAL VOLUME(mL) 550 mL; BG TOTAL HEMOGLOBIN 13.7 g/dL (12.0-18.0); BG VENT MODE VENT - A/C; BG VENT RATE 14 set
[2018-09-13] MEDS ORDERED: FENTANYL CITRATE/PF 50MCG/ML 2ML VIAL ONE (11:55)
[2018-09-13] MEDS ORDERED: MIDAZOLAM HCL 5 MG/5 ML VIAL ONE (11:55)
[2018-09-13] MEDS ORDERED: CEFAZOLIN 1000MG PREMIX 50 ML IV NR (12:30)
[2018-09-13] MEDS ORDERED: MIDAZOLAM HCL 5 MG/5 ML VIAL IV PRN (12:38)
[2018-09-13] MEDS ORDERED: FENTANYL CITRATE/PF 50MCG/ML 2ML VIAL IV PRN (12:41)
[2018-09-13] MEDS: MORPHINE SULFATE 4 MG/ML CPJ (NOT FOR IM USE) IV PRN (13:12)
[2018-09-13] MEDS ORDERED: SODIUM CHLORIDE 0.9% 10ML VIAL ONE (14:17)
[2018-09-14] VITALS (11 sets, daily range): BP systolic 92–113; BP diastolic 47–71
[2018-09-14] MEDS: BLOOD SUGAR DIAGNOSTIC STRIP TEST SCH ×5 (00:17→23:30)
[2018-09-14] MEDS: METOCLOPRAMIDE HCL 10MG/2ML VIAL IV SCH ×5 (00:24→23:32)
[2018-09-14] MEDS: IPRATROPIUM/ALBUTEROL 0.5-3(2.5)MG/3ML NEB HHN SCH ×5 (02:03→20:59)
[2018-09-14] MEDS: ACETYLCYSTEINE 100MG/ML 10% VIAL 4ML INH SCH ×3 (02:03→16:22)
[2018-09-14] MEDS: INSULIN LISPRO 100 UNITS/ML SUBCUT SCH ×5 (06:00→23:37)
[2018-09-14 06:39] LABS: BASOPHILS % 0.5 % (0.0-2.0); EOSINOPHILS % 1.3 % (0.0-5.0); HEMATOCRIT. 40.6 % (36.0-48.0); HEMOGLOBIN. 13.1 g/dL (12.0-16.0); LYMPHOCYTES % 12.4 % (20.0-50.0); MEAN CORPUSCULAR HEMOGLOBIN 30.4 pg (28.0-32.0); MEAN CORPUSCULAR VOLUME 94.5 fL (81.0-99.0); MEAN PLATELET VOLUME 9.8 fl (7.4-10.4); NEUTROPHILS % 80.8 % (40.0-76.0); PLATELET 357 x1000/uL (130-400); RED BLOOD CELL COUNT 4.29 mill/uL (4.2-5.4); RED CELL DISTRIBUTION WIDTH 16.4 % (11.6-14.6)
[2018-09-14] MEDS: SODIUM CHLORIDE 0.9% INJ 3ML FLUSH IVF SCH ×3 (06:43→22:39)
[2018-09-14 07:59] LABS: CHLORIDE 99 mEq/L (98-107)
[2018-09-14 08:12] LABS: BG BASE EXCESS 4.3 mmol/L (-2.0-2.0); BG CARBOXYHEMOGLOBIN 0.3 % (0.5-1.5); BG DEOXYHEMOGLOBIN 3.4 % (0.0-5.0); BG HCO3 ACT 29.4 mmol/L (22.0-26.0); BG OXYGEN SATURATION 96.6 % (92.0-98.5); BG OXYHEMOGLOBIN 96.3 % (94.0-97.0); BG PCO2 45.6 mmHg (35.0-45.0); BG PH 7.427 (7.350-7.450); BG PO2 89.3 mmHg (75.0-100.0); BG SAMPLE SITE RIGHT RADIAL; BG TIDAL VOLUME(mL) 550 mL; BG TOTAL HEMOGLOBIN 13.2 g/dL (12.0-18.0); BG VENT MODE VENT - A/C; BG VENT RATE 14 set
[2018-09-14] MEDS: PANTOPRAZOLE SODIUM 40 MG/VIAL IV SCH ×2 (09:29→22:39)
[2018-09-14] MEDS: QUETIAPINE FUMARATE 25MG TABLET PO SCH (09:29)
[2018-09-14] MEDS: FUROSEMIDE 40MG/4ML VIAL IVP SCH (09:29)
[2018-09-14] MEDS: DOCUSATE SODIUM SUGAR FREE 100MG/10ML UDC NG SCH (09:30)
[2018-09-14] MEDS: MAGNESIUM/ALUMINUM HYDROXIDE/SIMETHICONE 30ML UDC PO PRN (09:30)
[2018-09-14] MEDS ORDERED: LIDOCAINE HCL/PF 1% 2ML VIAL ONE (13:23)
[2018-09-14] MEDS: DIPHENHYDRAMINE 50MG/ML VIAL IV PRN (23:53)
[2018-09-15] VITALS (12 sets, daily range): BP systolic 81–111; BP diastolic 32–71
[2018-09-15] MEDS: IPRATROPIUM/ALBUTEROL 0.5-3(2.5)MG/3ML NEB HHN SCH ×6 (02:31→20:46)
[2018-09-15] MEDS: METOCLOPRAMIDE HCL 10MG/2ML VIAL IV SCH ×3 (05:48→17:17)
[2018-09-15] MEDS: SODIUM CHLORIDE 0.9% INJ 3ML FLUSH IVF SCH ×3 (05:48→21:06)
[2018-09-15] MEDS: BLOOD SUGAR DIAGNOSTIC STRIP TEST SCH ×3 (05:51→18:46)
[2018-09-15] MEDS: INSULIN LISPRO 100 UNITS/ML SUBCUT SCH ×3 (05:55→18:00)
[2018-09-15 08:05] LABS: BG BASE EXCESS 4.3 mmol/L (-2.0-2.0); BG DEOXYHEMOGLOBIN 1.6 % (0.0-5.0); BG METHEMOGLOBIN 0.3 % (0.0-1.5); BG OXYGEN SATURATION 98.4 % (92.0-98.5); BG OXYHEMOGLOBIN 98.1 % (94.0-97.0); BG PCO2 49.3 mmHg (35.0-45.0); BG PH 7.402 (7.350-7.450); BG PO2 125.1 mmHg (75.0-100.0); BG SAMPLE SITE RIGHT BRACHIAL; BG TIDAL VOLUME(mL) 550 mL; BG TOTAL HEMOGLOBIN 12.9 g/dL (12.0-18.0); BG VENT MODE VENT - A/C; BG VENT RATE 14 set
[2018-09-15] MEDS: PANTOPRAZOLE SODIUM 40 MG/VIAL IV SCH ×2 (09:45→21:05)
[2018-09-15] MEDS: FUROSEMIDE 40MG/4ML VIAL IVP SCH (09:45)
[2018-09-15] MEDS: DOCUSATE SODIUM SUGAR FREE 100MG/10ML UDC NG SCH (09:46)
[2018-09-15] MEDS: QUETIAPINE FUMARATE 25MG TABLET PO SCH (09:46)
[2018-09-15] MEDS: MORPHINE SULFATE 4 MG/ML CPJ (NOT FOR IM USE) IV PRN (13:23)
[2018-09-15] MEDS: LORAZEPAM 2MG/ML CPJ IV PRN (17:42)
[2018-09-16] VITALS (9 sets, daily range): BP systolic 94–144; BP diastolic 49–84
[2018-09-16] MEDS: IPRATROPIUM/ALBUTEROL 0.5-3(2.5)MG/3ML NEB HHN SCH ×6 (00:04→20:15)
[2018-09-16] MEDS: METOCLOPRAMIDE HCL 10MG/2ML VIAL IV SCH ×5 (00:13→23:30)
[2018-09-16] MEDS: INSULIN LISPRO 100 UNITS/ML SUBCUT SCH ×5 (06:00→23:47)
[2018-09-16] MEDS: BLOOD SUGAR DIAGNOSTIC STRIP TEST SCH ×5 (06:00→23:30)
[2018-09-16] MEDS: SODIUM CHLORIDE 0.9% INJ 3ML FLUSH IVF SCH ×3 (06:32→21:09)
[2018-09-16] MEDS: QUETIAPINE FUMARATE 25MG TABLET PO SCH (08:48)
[2018-09-16] MEDS: PANTOPRAZOLE SODIUM 40 MG/VIAL IV SCH (08:48)
[2018-09-16] MEDS: FUROSEMIDE 40MG/4ML VIAL IVP SCH (08:48)
[2018-09-16] MEDS: DOCUSATE SODIUM SUGAR FREE 100MG/10ML UDC NG SCH (08:48)
[2018-09-16] MEDS: LORAZEPAM 2MG/ML CPJ IV PRN (18:43)
[2018-09-16] MEDS: FAMOTIDINE 20MG/2ML VIAL IV SCH (21:09)
[2018-09-17] VITALS (9 sets, daily range): BP systolic 92–148; BP diastolic 50–77
[2018-09-17] MEDS: IPRATROPIUM/ALBUTEROL 0.5-3(2.5)MG/3ML NEB HHN SCH ×6 (00:25→21:45)
[2018-09-17] MEDS: SODIUM CHLORIDE 0.9% INJ 3ML FLUSH IVF SCH ×3 (05:13→21:17)
[2018-09-17] MEDS: LORAZEPAM 2MG/ML CPJ IV PRN (05:13)
[2018-09-17] MEDS: METOCLOPRAMIDE HCL 10MG/2ML VIAL IV SCH ×3 (05:13→17:20)
[2018-09-17] MEDS: BLOOD SUGAR DIAGNOSTIC STRIP TEST SCH ×3 (05:18→17:15)
[2018-09-17] MEDS: INSULIN LISPRO 100 UNITS/ML SUBCUT SCH ×3 (05:26→17:15)
[2018-09-17 06:36] LABS: BG BASE EXCESS 8.4 mmol/L (-2.0-2.0); BG CARBOXYHEMOGLOBIN 0.1 % (0.5-1.5); BG DEOXYHEMOGLOBIN 1.3 % (0.0-5.0); BG HCO3 ACT 33.7 mmol/L (22.0-26.0); BG METHEMOGLOBIN 0.2 % (0.0-1.5); BG OXYGEN SATURATION 98.7 % (92.0-98.5); BG OXYHEMOGLOBIN 98.4 % (94.0-97.0); BG PCO2 48.9 mmHg (35.0-45.0); BG PH 7.456 (7.350-7.450); BG PO2 141.3 mmHg (75.0-100.0); BG SAMPLE SITE RIGHT RADIAL; BG TIDAL VOLUME(mL) 550 mL; BG TOTAL HEMOGLOBIN 13.4 g/dL (12.0-18.0); BG VENT MODE VENT - A/C; BG VENT RATE 14 set
[2018-09-17 07:03] LABS: BASOPHILS % 1.5 % (0.0-2.0); EOSINOPHILS % 7.9 % (0.0-5.0); HEMOGLOBIN. 12.6 g/dL (12.0-16.0); LYMPHOCYTES % 20.2 % (20.0-50.0); MEAN CORPUSCULAR HEMOGLOBIN 30.3 pg (28.0-32.0); MEAN CORPUSCULAR VOLUME 93.7 fL (81.0-99.0); MEAN PLATELET VOLUME 9.5 fl (7.4-10.4); NEUTROPHILS % 64.4 % (40.0-76.0); PLATELET 386 x1000/uL (130-400); RED BLOOD CELL COUNT 4.16 mill/uL (4.2-5.4); RED CELL DISTRIBUTION WIDTH 16.4 % (11.6-14.6)
[2018-09-17 07:20] LABS: CHLORIDE 100 mEq/L (98-107)
[2018-09-17] MEDS: DOCUSATE SODIUM SUGAR FREE 100MG/10ML UDC NG SCH (08:33)
[2018-09-17] MEDS: FAMOTIDINE 20MG/2ML VIAL IV SCH ×2 (08:33→21:17)
[2018-09-17] MEDS: QUETIAPINE FUMARATE 25MG TABLET PO SCH (08:33)
[2018-09-17] MEDS: FUROSEMIDE 40MG/4ML VIAL IVP SCH (08:33)
[2018-09-17] MEDS ORDERED: FUROSEMIDE 40MG TABLET PO NR (11:30)
[2018-09-17] MEDS ORDERED: LIDOCAINE HCL/PF 1% 2ML VIAL ONE (13:26)
[2018-09-18] VITALS (7 sets, daily range): BP systolic 94–106; BP diastolic 44–78
[2018-09-18] MEDS: METOCLOPRAMIDE HCL 10MG/2ML VIAL IV SCH ×4 (01:03→18:16)
[2018-09-18] MEDS: IPRATROPIUM/ALBUTEROL 0.5-3(2.5)MG/3ML NEB HHN SCH ×6 (01:07→19:58)
[2018-09-18] MEDS: DIPHENHYDRAMINE 50MG/ML VIAL IV PRN (01:37)
[2018-09-18] MEDS: BLOOD SUGAR DIAGNOSTIC STRIP TEST SCH ×4 (05:21→18:14)
[2018-09-18] MEDS: INSULIN LISPRO 100 UNITS/ML SUBCUT SCH ×4 (05:23→18:00)
[2018-09-18] MEDS: SODIUM CHLORIDE 0.9% INJ 3ML FLUSH IVF SCH ×2 (05:27→14:00)
[2018-09-18] MEDS: FUROSEMIDE 40MG/4ML VIAL IVP SCH (08:54)
[2018-09-18] MEDS: QUETIAPINE FUMARATE 25MG TABLET PO SCH (08:54)
[2018-09-18] MEDS: DOCUSATE SODIUM SUGAR FREE 100MG/10ML UDC NG SCH (08:54)
[2018-09-18] MEDS: FAMOTIDINE 20MG/2ML VIAL IV SCH (08:54)
[2018-09-18 12:08] LABS: BG CARBOXYHEMOGLOBIN 0.3 % (0.5-1.5); BG DEOXYHEMOGLOBIN 6.5 % (0.0-5.0); BG FRACTION INSPIRED OXYGEN 60; BG HCO3 ACT 36.6 mmol/L (22.0-26.0); BG METHEMOGLOBIN 0.1 % (0.0-1.5); BG OXYGEN SATURATION 93.5 % (92.0-98.5); BG OXYHEMOGLOBIN 93.1 % (94.0-97.0); BG PH 7.465 (7.350-7.450); BG PO2 66.8 mmHg (75.0-100.0); BG PRESSURE SUPPORT 12; BG SAMPLE SITE RIGHT RADIAL; BG TIDAL VOLUME(mL) 500 mL; BG TOTAL HEMOGLOBIN 13.5 g/dL (12.0-18.0); BG VENT MODE VENT - SIMV; BG VENT RATE 10 set
== END 2018-09-18 22:00 | DRG 4 ==
LOC: ER 14:43 → EDBEDREQSVC 15:49 → EDBEDREQ 16:26 → CVICU 18:56 → ENRESERV 20:21 → 5EST 09-12 13:10
PROVIDERS: ADMIT Internal Medicine; ATTEND Internal Medicine
PROC: 5A1955Z Respiratory Ventilation, Greater than 96 Consecutive Hours (ICD-10-PCS; 2018-08-26)
PROC: 0BH17EZ Insertion of Endotracheal Airway into Trachea, Via Natural or Artificial Opening (ICD-10-PCS; 2018-08-26)
PROC: 02HV33Z Insertion of Infusion Device into Superior Vena Cava, Percutaneous Approach (ICD-10-PCS; 2018-09-01)
PROC: B548ZZA Ultrasonography of Superior Vena Cava, Guidance (ICD-10-PCS; 2018-09-01)
PROC: 0GBJ0ZZ Excision of Thyroid Gland Isthmus, Open Approach (ICD-10-PCS; principal; 2018-09-10)
PROC: 0B113F4 Bypass Trachea to Cutaneous with Tracheostomy Device, Percutaneous Approach (ICD-10-PCS; 2018-09-10)
PROC: 0DH63UZ Insertion of Feeding Device into Stomach, Percutaneous Approach (ICD-10-PCS; 2018-09-13)
DX: A41.01 Sepsis due to Methicillin susceptible Staphylococcus aureus (principal); R65.21 Severe sepsis with septic shock; J69.0 Pneumonitis due to inhalation of food and vomit; J96.21 Acute and chronic respiratory failure with hypoxia; J15.211 Pneumonia due to Methicillin susceptible Staphylococcus aureus; G93.41 Metabolic encephalopathy; E87.0 Hyperosmolality and hypernatremia; E87.2 Acidosis; E11.9 Type 2 diabetes mellitus without complications; D64.9 Anemia, unspecified; Z99.11 Dependence on respirator [ventilator] status; E46 Unspecified protein-calorie malnutrition; I11.0 Hypertensive heart disease with heart failure; I50.9 Heart failure, unspecified; E66.01 Morbid (severe) obesity due to excess calories; E78.5 Hyperlipidemia, unspecified; E87.6 Hypokalemia; E03.9 Hypothyroidism, unspecified; I25.10 Atherosclerotic heart disease of native coronary artery without angina pectoris; E78.1 Pure hyperglyceridemia; F17.210 Nicotine dependence, cigarettes, uncomplicated; J44.0 Chronic obstructive pulmonary disease with (acute) lower respiratory infection; Z90.710 Acquired absence of both cervix and uterus; Z68.35 Body mass index [BMI] 35.0-35.9, adult
CPT/HCPCS: 36415; 36569; 36600; 71045; 71275; 76604; 76937; 80048; 80061; 80305; 80320; 82375; 82550; 82553; 82805; 82962; 83036; 83605; 83735; 83880; 84100; 84439; 84443; 84478; 84484; 85379; 87070; 87077; 87804; 93005; 93306; 93970; 94002; 94003; 94640; 94667; 96361; 96374; 97162; 99291; A6261; C1725; C9113; J0330; J0690; J1120; J1170; J1200; J1644; J1650; J1815; J1940; J2060; J2250; J2270; J2543; J2704; J2765; J3010; J3370; J3480; J3490; J7030; J7040; J7050; J7060; J7608; J7620; Q9967; G0480